=== PATIENT | female | born 1980 | race Caucasian/White ===

== ENCOUNTER → 2016-03-30 | Outpatient (CLI) | payer OTHER ==
--- NOTE | 2016-03-31 15:34 | ECHO ---
DATE OF STUDY: 03/30/2016 REFERRING PHYSICIAN: Dr. Hasmukh Gallego INDICATION: Shortness of breath, heart murmur. HEIGHT: 64 inches. WEIGHT: 144 pounds. MEASUREMENTS: Left atrium: 3.4 cm Ventricular septum: 1.10 cm Posterior wall: 1.02 cm Left ventricle diastole: 3.9 cm Aortic root: 2.5 cm LVOT: 1.7 cm Inferior vena cava: 2.2 cm DOPPLER MEASUREMENTS: Mild aortic regurgitation. Aortic valve velocity: 156 cm/s LVOT velocity: 101 cm/s LVOT VTI: 19.5 cm Trace mitral regurgitation. Mitral E velocity: 107 cm/s Mitral A velocity: 104 cm/s Mitral deceleration time: 160 ms Pulmonary artery systolic pressure: 19 mmHg by pulmonary acceleration time method. MITRAL ANNULAR TISSUE DOPPLER: E prime septal: 7 cm/s E prime lateral: 12.9 cm/s DESCRIPTION: Rhythm was sinus. Image quality was fair. No pericardial effusion. This is a 2D, M-mode, color flow Doppler, and pulse wave Doppler examination including mitral annular tissue Doppler. CONCLUSIONS: 1. Mild aortic valve sclerosis of a three-cusp aortic valve. Mild central aortic regurgitation. 2. Otherwise, normal-appearing echocardiogram Doppler. 3. Normal left ventricle internal dimensions and wall thickness. Normal left ventricle (LV) wall motion and wall thickening. Normal LV systolic function. Left ventricular ejection fraction (LVEF) 60% by visual estimate. Normal LV diastolic function. MTDD
== END ==
LOC: M CARPUL 09:29
PROVIDERS: ATTEND Internal Medicine
DX: R01.1 Cardiac murmur, unspecified (principal)